=== PATIENT | female | born 1985 | race Hispanic/Latino ===

== ENCOUNTER 2018-09-21 15:41 | Inpatient (IN) | payer SELFPAY ==
[~2018-09-21] VITALS: Ht 158.1 cm; Wt 64.9 kg
[2018-09-21] MEDS ORDERED: PREN1TAB80 PO (19:44)
[2018-09-21 19:45] VITALS: BP 117/78
[2018-09-21 19:56] LABS: APPEARANCE,URINE Clear (CLEAR); BILIRUBIN,URINE Negative (NEGATIVE); COLOR,URINE Yellow (YELLOW); GLUCOSE, URINE (UA) Negative (NEGATIVE); KETONES,URINE Negative (NEGATIVE); LEUKOCYTE ESTERASE ,URINE Trace (NEGATIVE); NITRATE,URINE Negative (NEGATIVE); OCCULT BLOOD,URINE Negative (NEGATIVE); PROTEIN,URINE Negative (NEGATIVE)
[2018-09-21 20:04] LABS: BACTERIA,URINE None Seen /HPF (None Seen); RBC,URINE None Seen /HPF (0-1); SQUAMOUS EPITHELIAL CELL,UR 0-2 /HPF (0-2)
[2018-09-21] MEDS: LACTATED RINGERS 1000ML 1,000 ML IV PRN (20:40)
[2018-09-21 20:53] LABS: HEMATOCRIT 35.2 % (36-48); MEAN CORPUSCULAR HEMOGLOBIN 31.1 pg (27.0-33.0); MEAN CORPUSCULAR HGB CONC 34.2 g/dL (32.0-36.0); MEAN CORPUSCULAR VOLUME 91.1 fL (79-99); PLATELET COUNT (AUTO) 208 K/uL (130-400); RED BLOOD CELL COUNT(AUTO) 3.87 MIL/uL (4.00-5.50); RED CELL DISTRIBUTION WIDTH 14.2 % (11.0-15.5); WHITE BLOOD COUNT (AUTO) 8.5 K/uL (4.8-10.8)
[2018-09-22] MEDS: LACTATED RINGERS 1000ML 1,000 ML IV PRN (01:47)
[2018-09-22] MEDS ORDERED: LACTATED RINGERS 1000ML 1,000 ML IV ONE (04:50)
[2018-09-22] MEDS ORDERED: OXYTOCIN 10 USP UNITS/ML ONE ×2 (04:51→14:46)
[2018-09-22] MEDS ORDERED: OXYTOCIN 10 USP UNITS/ML 20 UNIT in LACTATED RINGERS 1000ML 1,000 ML IV SCH (05:00)
[2018-09-22] MEDS ORDERED: MEPERIDINE-PF 50 MG/ML SYG IVP SCH (08:45)
[2018-09-22] MEDS ORDERED: PROMETHAZINE HCL 25 MG/ML 1ML AMPULE IM SCH (08:45)
[2018-09-22] MEDS ORDERED: METHYLERGONOVINE MALEATE 0.2 MG/1 ML ML ONE (09:13)
[2018-09-22] MEDS ORDERED: MISOPROSTOL 200 MCG TABLET ONE ×3 (09:21→09:25)
[2018-09-22] MEDS ORDERED: BENZOCAINE/LANOLIN/ALOE VERA 60 ML AEROSOL TP PRN (10:15)
[2018-09-22] MEDS ORDERED: MEASLES/MUMPS/RUBELLA VACCINE, LIVE 0.5 ML/VIAL SQ PRN (10:15)
[2018-09-22] MEDS ORDERED: OXYTOCIN-LR 20 UNITS/1000 ML 1,000 ML IV SCH (10:15)
[2018-09-22] MEDS ORDERED: WITCH HAZEL 1 PAD TP PRN (10:15)
[2018-09-22] MEDS ORDERED: LANOLIN 30GM OINTMENT TP PRN (10:15)
[2018-09-22] MEDS ORDERED: ACETAMINOPHEN 325 MG TAB PO PRN (10:15)
[2018-09-22] MEDS ORDERED: DIPH,PERTUSS(ACELL),TET VAC/PF 0.5 ML VIAL IM PRN (10:15)
[2018-09-22 10:45] VITALS: BP 109/72
[2018-09-22] MEDS: IBUPROFEN 600 MG TABLET PO PRN ×2 (11:02→20:59)
[2018-09-22 15:55] VITALS: BP 102/71
[2018-09-22 20:01] VITALS: BP 103/66
[2018-09-22] MEDS: DOCUSATE SODIUM 100 MG CAP PO SCH (20:58)
[2018-09-22 23:22] VITALS: BP 92/57
[2018-09-23 03:52] VITALS: BP 96/55
[2018-09-23 05:26] LABS: HEMATOCRIT 34.2 % (36-48); MEAN CORPUSCULAR HEMOGLOBIN 31.6 pg (27.0-33.0); MEAN CORPUSCULAR HGB CONC 34.4 g/dL (32.0-36.0); MEAN CORPUSCULAR VOLUME 91.7 fL (79-99); PLATELET COUNT (AUTO) 183 K/uL (130-400); RED BLOOD CELL COUNT(AUTO) 3.73 MIL/uL (4.00-5.50); RED CELL DISTRIBUTION WIDTH 14.3 % (11.0-15.5); WHITE BLOOD COUNT (AUTO) 9.9 K/uL (4.8-10.8)
[2018-09-23 06:20] LABS: HEPATITIS Bs ANTIGEN SCREEN P Negative (Negative)
[2018-09-23 07:45] VITALS: BP 91/58
[2018-09-23] MEDS: IBUPROFEN 600 MG TABLET PO PRN (09:29)
[2018-09-23] MEDS: DOCUSATE SODIUM 100 MG CAP PO SCH (09:29)
[2018-09-23 11:20] VITALS: BP 100/65
== END 2018-09-23 15:00 | disposition home or self-care (01) | DRG 807 ==
LOC: LDH 18:42 → WSH 09-22 10:40
PROVIDERS: ADMIT Obstetrics & Gynecology; ATTEND Obstetrics & Gynecology
PROC: 10E0XZZ Delivery of Products of Conception, External Approach (ICD-10-PCS; principal; 2018-09-23)
PROC: 10907ZC Drainage of Amniotic Fluid, Therapeutic from Products of Conception, Via Natural or Artificial Opening (ICD-10-PCS; 2018-09-23)
PROC: 3E033VJ Introduction of Other Hormone into Peripheral Vein, Percutaneous Approach (ICD-10-PCS; 2018-09-23)
DX: O80 Encounter for full-term uncomplicated delivery (principal); Z37.0 Single live birth; Z3A.00 Weeks of gestation of pregnancy not specified; Z3A.40 40 weeks gestation of pregnancy
CPT/HCPCS: 36415; 81001; 85027; 86592; 86850; 86900; 86901; 87340; A4351; A4606; G0378; J2175; J2210; J2550; J2590; J7120